=== PATIENT | female | born 1980 | race Caucasian/White ===

== ENCOUNTER → 2017-08-09 | Outpatient (CLI) | payer OTHER | LOC: LAB SHORT 11:45 → LAB 11:45 | DX: N39.0 Urinary tract infection, site not specified (principal) | CPT/HCPCS: 87086 ==

== ENCOUNTER 2019-01-04 11:37 | Emergency (ER) | payer OTHER ==
[~2019-01-04] VITALS: Ht 167.6 cm; Wt 87.5 kg
[~2019-01-04 11:37] MED LIST: IBUP800 PO; PANT40; PNV PRENATAL P1 EACH; Percocet 5-3251 EACH PO
[2019-01-04] MEDS ORDERED: Augmentin 875-1 EACH PO (13:03)
== END 2019-01-04 13:10 | disposition home or self-care (01) ==
LOC: ER 11:37
DX: S61.451A Open bite of right hand, initial encounter (principal); Z91.040 Latex allergy status; W55.01XA Bitten by cat, initial encounter
CPT/HCPCS: 90471; 99283-25

== ENCOUNTER 2019-01-11 16:48 | Emergency (ER) | payer OTHER ==
[~2019-01-11] VITALS: Ht 167.6 cm; Wt 87.5 kg
[~2019-01-11 16:48] MED LIST changes: +Augmentin 875-1 EACH PO
== END 2019-01-11 18:07 | disposition home or self-care (01) ==
LOC: ER 16:48
DX: Z29.14 Encounter for prophylactic rabies immune globulin (principal); Z91.040 Latex allergy status
CPT/HCPCS: 90471

== ENCOUNTER 2019-01-18 08:31 | Emergency (ER) | payer OTHER ==
[~2019-01-18] VITALS: Ht 167.6 cm; Wt 86.2 kg
== END 2019-01-18 09:31 | disposition home or self-care (01) ==
LOC: ER 08:31
DX: Z29.14 Encounter for prophylactic rabies immune globulin (principal); Z91.040 Latex allergy status
CPT/HCPCS: 90471

== ENCOUNTER 2020-03-10 20:09 | Inpatient (IN) | payer OTHER ==
[~2020-03-10] VITALS: Ht 167.6 cm; Wt 93.8 kg
[2020-03-10] MEDS ORDERED: ASPIR 8181 M1 PO (20:38)
[2020-03-10] MEDS ORDERED: PANT40 PO (20:38)
[2020-03-10] MEDS ORDERED: Glipizide ER2.5 MG PO (20:38)
[2020-03-10] MEDS ORDERED: EUTHYROX125 MCG PO (20:39)
[2020-03-10 20:44] LABS: BASOPHILS ABSOLUTE AUTO 0.05 K/mm3 (0.00-0.23); BASOPHILS PERCENT AUTO 1 % (0-2); EOSINOPHILS ABSOLUTE AUTO 0.08 K/mm3 (0.00-0.68); EOSINOPHILS PERCENT AUTO 1 % (0-6); Hematocrit 37.3 % (33.0-51.0); Hemoglobin 12.7 g/dL (11.5-16.0); IMMATURE GRAN ABSOLUTE AUTO 0.12 K/mm3 (0.00-0.10); IMMATURE GRAN PERCENT AUTO 1 % (0-1); LYMPHOCYTES ABSOLUTE AUTO 2.08 K/mm3 (0.84-5.20); LYMPHOCYTES PERCENT AUTO 20 % (21-46); MONOCYTES ABSOLUTE AUTO 0.78 K/mm3 (0.16-1.47); MONOCYTES PERCENT AUTO 8 % (4-13); Mean Corpuscular HGB 32.4 pg (26.0-34.0); Mean Corpuscular Volume 95 fL (80-100); Mean Platelet Volume 10.3 fL (9.1-12.4); NEUTROPHILS ABSOLUTE AUTO 7.26 K/mm3 (1.96-9.15); NEUTROPHILS PERCENT AUTO 70 % (41-73); Platelet Count 188 K/mm3 (150-400); RDW Standard Deviation 44.8 fL (35.1-46.3); Red Blood Cell Count 3.92 M/mm3 (3.80-5.20); White Blood Cell Count 10.37 K/mm3 (4.00-11.30)
--- NOTE | 2020-03-11 13:50 | NUR ---
Assumed care from Mike Chawla RN.
--- NOTE | 2020-03-11 15:59 | NUR ---
Pt ambulating in room, changing nb diaper, denies other needs.
[2020-03-12 05:22] LABS: Hemoglobin 10.7 g/dL (11.5-16.0); Mean Corpuscular HGB 32.6 pg (26.0-34.0); Mean Corpuscular HGB Conc 33.4 g/dL (31.5-36.5); Mean Corpuscular Volume 98 fL (80-100); Mean Platelet Volume 10.1 fL (9.1-12.4); Platelet Count 159 K/mm3 (150-400); RDW Standard Deviation 46.3 fL (35.1-46.3); Red Blood Cell Count 3.28 M/mm3 (3.80-5.20); White Blood Cell Count 9.32 K/mm3 (4.00-11.30)
[2020-03-12] MEDS ORDERED: IBUP800 PO (09:25)
== END 2020-03-12 09:48 | disposition home or self-care (01) | DRG 807 ==
LOC: OBS 20:09 → BC 20:10 → OBS 20:20 → BC 20:23
PROVIDERS: ADMIT Advanced Practice Midwife
PROC: 3E0P7VZ Introduction of Hormone into Female Reproductive, Via Natural or Artificial Opening (ICD-10-PCS; 2020-03-10)
PROC: 10E0XZZ Delivery of Products of Conception, External Approach (ICD-10-PCS; principal; 2020-03-11)
PROC: 3E033VJ Introduction of Other Hormone into Peripheral Vein, Percutaneous Approach (ICD-10-PCS; 2020-03-11)
PROC: 0HQ9XZZ Repair Perineum Skin, External Approach (ICD-10-PCS; 2020-03-11)
PROC: 3E0R3BZ Introduction of Anesthetic Agent into Spinal Canal, Percutaneous Approach (ICD-10-PCS; 2020-03-11)
PROC: 00HU33Z Insertion of Infusion Device into Spinal Canal, Percutaneous Approach (ICD-10-PCS; 2020-03-11)
PROC: 3E0234Z Introduction of Serum, Toxoid and Vaccine into Muscle, Percutaneous Approach (ICD-10-PCS; 2020-03-12)
DX: O24.425 Gestational diabetes mellitus in childbirth, controlled by oral hypoglycemic drugs (principal); Z37.0 Single live birth; Z23 Encounter for immunization; O99.284 Endocrine, nutritional and metabolic diseases complicating childbirth; E03.9 Hypothyroidism, unspecified; Z3A.39 39 weeks gestation of pregnancy
CPT/HCPCS: 36415; 82947; 85025; 85027; 86850; 86900; 86901; 90674; A9270; J1885; J2001; J2590; J3010; J7120; Q2038; U0004